=== PATIENT | male | born 1950 | race Caucasian/White ===

== ENCOUNTER → 2022-04-20 09:23 | Outpatient (CLI) | payer MEDICARE, OTHER, SELFPAY ==
--- NOTE | 2022-04-20 | DI.MRI.S_ITS ---
PROCEDURE: MR SHOULDER RT WO CON INDICATIONS: Impingement syndrome of right shoulder TECHNIQUE: Noncontrast oblique coronal T2 fast spin echo with fat saturation, oblique sagittal T1 spin echo and T2 fast spin echo with fat saturation, axial T1 spin echo and T2 fast spin echo with fat saturation through the shoulder. COMPARISON: None. FINDINGS: Image quality: Excellent. Rotator cuff: There is full-thickness rupture involving anterior fibers of distal supraspinatus at its insertion on the humeral head with up to 1.2 cm medial retraction of torn tendon fibers and a fluid-filled gap measures 1.4 cm in AP dimension. Tendinosis and moderate grade articular surface partial-thickness tear involving mid to posterior fibers of distal supraspinatus is seen. Distal infraspinatus tendinosis is noted. Distal subscapularis tendon is intact. Sagittal images demonstrate no significant muscle atrophy. Bones and bursae: No bone marrow contusions or fractures. Moderate acromioclavicular joint osteoarthritic changes are seen with downward osteophyte formation depressing the musculotendinous junction of supraspinatus. There is [id number] amount of subacromial subdeltoid bursal fluid. Mild to moderate glenohumeral joint osteoarthritic changes also seen. Capsule and soft tissues: Signal abnormality and contour irregularity involving superior anterior labrum at 12 to 2 o'clock position is seen suggestive of superior anterior labral tear. The long head of the biceps tendinosis and low-grade intrasubstance partial-thickness tear is. The rotator interval appears normal, without fibrosis. The coracohumeral ligament is normal in thickness. IMPRESSION: 1. Full-thickness rupture involving anterior fibers of distal supraspinatus at its insertion on the humeral head with up to 1.2 cm medial retraction of torn tendon fibers and fluid-filled gap measures 1.4 cm in AP dimension. Tendinosis and moderate grade articular surface partial-thickness tear involving mid to posterior fibers of distal supraspinatus. Distal infraspinatus tendinosis. 2. Moderate acromioclavicular joint and glenohumeral joint osteoarthritis. [id number] amount of subacromial subdeltoid bursal fluid. 3. Suggestion of superior anterior labral tear at 12 to 2 o'clock position. 4. Tendinosis and low-grade intrasubstance partial-thickness tear involving proximal intra-articular portion of long head of biceps. Dictated by: Sony Levy M.D. on 04/20/2022 at 11:12 Approved by: Sony Levy M.D. on 04/20/2022 at 12:46
== END ==
PROVIDERS: Family Provider Family Medicine; PCP Family Medicine; Referring Provider Orthopaedic Surgery; Visit Provider Orthopaedic Surgery
DX: M75.121 Complete rotator cuff tear or rupture of right shoulder, not specified as traumatic (principal); S46.111A Strain of muscle, fascia and tendon of long head of biceps, right arm, initial encounter; M75.41 Impingement syndrome of right shoulder; M19.011 Primary osteoarthritis, right shoulder
CPT/HCPCS: 73221